=== PATIENT | male | born 1940 | race Two or more races ===

== ENCOUNTER 2020-12-05 17:46 | Inpatient (IN) | payer OTHER, MEDICAID ==
[~2020-12-05] VITALS: Ht 165.1 cm; Wt 80.3 kg
[2020-12-05] MEDS ORDERED: SODIUM CHLORIDE 0.9% 1,000 ML IV ONE (18:15)
[2020-12-05] MEDS ORDERED: LEVETIRACETAM 1000MG PREMIX 100 ML IV ONE (18:15)
[2020-12-05] MEDS ORDERED: LORAZEPAM 2MG/ML CPJ IV ONE ×2 (18:15→18:30)
[2020-12-05] MEDS ORDERED: ETOMIDATE 2MG/ML 10ML VIAL IV ONE (18:30)
[2020-12-05] MEDS ORDERED: ROCURONIUM BROMIDE 10MG/ML VIAL 5ML IV ONE (18:30)
[2020-12-05] MEDS ORDERED: PROPOFOL 10MG/ML 100ML 100 ML IV ONE ×2 (18:30→19:30)
[2020-12-05 18:56] LABS: BASOPHILS % 0.5 % (0.0-2.0); HEMATOCRIT. 42.7 % (42.0-52.0); HEMOGLOBIN. 14.4 g/dL (14.0-18.0); MEAN CORPUSCULAR HEMOGLOBIN 32.1 pg (28.0-32.0); MEAN CORPUSCULAR VOLUME 95.4 fL (80.0-94.0); MEAN PLATELET VOLUME 7.5 fl (7.4-10.4); MONOCYTES % 4.8 % (2.0-8.0); NEUTROPHILS % 45.7 % (40.0-76.0); PLATELET 214 x1000/uL (130-400); RED BLOOD CELL COUNT 4.48 mill/uL (4.7-6.1); RED CELL DISTRIBUTION WIDTH 14.2 % (11.6-14.6)
[2020-12-05 19:02] LABS: CHLORIDE 100 mEq/L (98-107)
[2020-12-05 19:07] LABS: ETHANOL BLOOD < 10 mg/dL
[2020-12-05] MEDS ORDERED: PHENYTOIN SODIUM 1,000 MG in SODIUM CHLORIDE 0.9% 100 ML IV ONE (19:15)
[2020-12-05 19:36] LABS: CLARITY URINE CLEAR (CLEAR); COLOR URINE YELLOW (YELLOW); KETONES URINE TRACE (NEGATIVE); LEUKOCYTE ESTERASE URINE NEGATIVE (NEGATIVE); NITRITE URINE NEGATIVE (NEGATIVE); OCCULT BLOOD URINE 1+ (NEGATIVE); PH URINE 5.5 (4.5-8.0); PROTEIN URINE 3+ (NEGATIVE); SPECIFIC GRAVITY URINE 1.015 (1.005-1.030); UROBILINOGEN URINE 0.2 E.U./dL (0.2-1.0)
[2020-12-05 19:47] LABS: *AMPHETAMINES SCREEN URINE NEGATIVE (NEGATIVE); *BARBITURATES SCREEN URINE NEGATIVE (NEGATIVE); *BENZODIAZEPINES SCREEN URINE NEGATIVE (NEGATIVE); *COCAINE SCREEN URINE NEGATIVE (NEGATIVE); CANNABINOID URINE SCREEN NEGATIVE (NEGATIVE); PHENCYCLIDINE URINE SCREEN NEGATIVE (NEGATIVE)
[2020-12-05 19:48] LABS: METHADONE URINE SCREEN NEGATIVE (NEGATIVE); OPIATES URINE SCREEN NEGATIVE (NEGATIVE)
[2020-12-05] MEDS ORDERED: ACETAMINOPHEN 650MG/20.3ML UDC GT PRN ×2 (20:30)
[2020-12-05] MEDS ORDERED: DEXTROSE 50% WATER 50ML SYRINGE IV PRN (20:30)
[2020-12-05] MEDS ORDERED: ONDANSETRON HCL 4MG/2ML INJ IV PRN (20:30)
[2020-12-05] MEDS ORDERED: LORAZEPAM 2MG/ML CPJ IV PRN (20:30)
[2020-12-05] MEDS ORDERED: DIPHENHYDRAMINE 50MG/ML VIAL IV PRN (20:30)
[2020-12-05] MEDS ORDERED: LEVETIRACETAM 500 MG in SODIUM CHLORIDE 0.9% 100 ML IV SCH (20:30)
[2020-12-05] MEDS ORDERED: BLOOD SUGAR DIAGNOSTIC STRIP TEST SCH (21:00)
[2020-12-05] MEDS ORDERED: INSULIN LISPRO 100 UNITS/ML SUBCUT SCH (21:00)
[2020-12-05] MEDS: SODIUM CHLORIDE 0.9% 1,000 ML IV SCH (21:15)
[2020-12-05] MEDS ORDERED: PHENYTOIN SODIUM 300 MG in SODIUM CHLORIDE 0.9% 50 ML IV SCH (22:00)
[2020-12-05 23:45] VITALS: BP 152/72
[2020-12-06] VITALS (62 sets, daily range): BP systolic 78–170; BP diastolic 48–99
[2020-12-06 00:15] LABS: BG CARBOXYHEMOGLOBIN 0.1 % (0.5-1.5); BG DEOXYHEMOGLOBIN 0.8 % (0.0-5.0); BG FRACTION INSPIRED OXYGEN 100; BG HCO3 ACT 19.6 mmol/L (22.0-26.0); BG METHEMOGLOBIN 0.3 % (0.0-1.5); BG OXYGEN SATURATION 99.2 % (92.0-98.5); BG OXYHEMOGLOBIN 98.8 % (94.0-97.0); BG PCO2 31.8 mmHg (35.0-45.0); BG PH 7.408 (7.350-7.450); BG PO2 346.7 mmHg (75.0-100.0); BG SAMPLE SITE ALINE; BG TOTAL HEMOGLOBIN 13.9 g/dL (12.0-18.0); BG VENT MODE VENT - AC
[2020-12-06] MEDS ORDERED: FENTANYL CITRATE/PF 2,500 MCG in SODIUM CHLORIDE 0.9% 200 ML IV PRN (01:45)
[2020-12-06] MEDS ORDERED: FENTANYL CITRATE 2,500 MCG in SODIUM CHLORIDE 0.9% 200 ML IV PRN (02:00)
[2020-12-06] MEDS: PROPOFOL 10MG/ML 100ML 100 ML IV PRN ×2 (03:02→07:03)
[2020-12-06] MEDS ORDERED: METF-416 MT (03:31)
[2020-12-06] MEDS ORDERED: BENA40TA9 PO (03:31)
[2020-12-06] MEDS ORDERED: MIRT-89 PO (03:31)
[2020-12-06] MEDS ORDERED: LEVE500T98 PO (03:31)
[2020-12-06] MEDS ORDERED: DONE23TA3 PO (03:31)
[2020-12-06] MEDS ORDERED: MELO-106 PO (03:31)
[2020-12-06] MEDS ORDERED: ASPI-1497 PO (03:31)
[2020-12-06] MEDS ORDERED: PHEN50TA2 PO (03:31)
[2020-12-06] MEDS: BLOOD SUGAR DIAGNOSTIC STRIP TEST SCH ×3 (05:51→17:31)
[2020-12-06] MEDS: SODIUM CHLORIDE 0.9% 1,000 ML IV SCH ×2 (06:02→16:03)
[2020-12-06] MEDS: INSULIN LISPRO 100 UNITS/ML SUBCUT SCH ×3 (06:03→17:30)
[2020-12-06 07:00] LABS: BASOPHILS % 0.5 % (0.0-2.0); EOSINOPHILS % 0.2 % (0.0-5.0); HEMATOCRIT. 34.8 % (42.0-52.0); HEMOGLOBIN. 12.3 g/dL (14.0-18.0); MEAN CORPUSCULAR HEMOGLOBIN 31.8 pg (28.0-32.0); MEAN CORPUSCULAR VOLUME 89.9 fL (80.0-94.0); MEAN PLATELET VOLUME 7.5 fl (7.4-10.4); MONOCYTES % 6.8 % (2.0-8.0); NEUTROPHILS % 71.5 % (40.0-76.0); PLATELET 167 x1000/uL (130-400); RED BLOOD CELL COUNT 3.87 mill/uL (4.7-6.1)
[2020-12-06] MEDS ORDERED: PHENYLEPHRINE 50 MG in DEXT 5% WATER 245 ML IV PRN (07:00)
[2020-12-06 07:13] LABS: CHLORIDE 106 mEq/L (98-107)
[2020-12-06 07:26] LABS: PHOSPHORUS 2.9 mg/dL (2.5-4.9)
[2020-12-06] MEDS ORDERED: LIDOCAINE HCL 1% 30ML VIAL (10MG/ML) ONE (08:37)
[2020-12-06] MEDS ORDERED: PHENYTOIN SODIUM 100MG/2ML VIAL IV ONE (08:46)
[2020-12-06] MEDS: PANTOPRAZOLE SODIUM 40 MG/VIAL IV SCH (08:52)
[2020-12-06] MEDS: PHENYTOIN SODIUM 300 MG in SODIUM CHLORIDE 0.9% 50 ML IV SCH ×2 (08:52→09:16)
[2020-12-06] MEDS ORDERED: DOPAMINE 400MG/250ML PREMIX 250 ML IV PRN (09:00)
[2020-12-06 09:02] LABS: BG BASE EXCESS -4.2 mmol/L (-2.0-2.0); BG CARBOXYHEMOGLOBIN 0.2 % (0.5-1.5); BG DEOXYHEMOGLOBIN 2.5 % (0.0-5.0); BG FRACTION INSPIRED OXYGEN 40; BG HCO3 ACT 20.3 mmol/L (22.0-26.0); BG METHEMOGLOBIN 0.3 % (0.0-1.5); BG OXYGEN SATURATION 97.5 % (92.0-98.5); BG PCO2 35.3 mmHg (35.0-45.0); BG PH 7.377 (7.350-7.450); BG PO2 104.9 mmHg (75.0-100.0); BG SAMPLE SITE LEFT RADIAL; BG TOTAL HEMOGLOBIN 12.8 g/dL (12.0-18.0); BG VENT MODE VENT - AC
[2020-12-06] MEDS: LEVETIRACETAM 500MG PREMIX 100 ML IV SCH ×2 (09:17→21:16)
[2020-12-06] MEDS ORDERED: IPRATROPIUM/ALBUTEROL 0.5-3(2.5)MG/3ML NEB HHN PRN (10:45)
[2020-12-06] MEDS ORDERED: INFLUENZA VACCINE 05/PF 0.5 ML SYRINGE IM ONE (12:00)
[2020-12-06] MEDS ORDERED: PNEUMOCOCCAL 23-VAL P-SAC VAC 0.5 ML IM ONE (12:00)
[2020-12-06] MEDS: GUAIFENESIN 200MG/10ML SUGAR FREE UDC PO SCH ×2 (14:35→17:31)
[2020-12-06] MEDS ORDERED: MIDAZOLAM HCL 100 MG in SODIUM CHLORIDE 0.9% 80 ML IV PRN (15:15)
[2020-12-06] MEDS: IPRATROPIUM/ALBUTEROL 0.5-3(2.5)MG/3ML NEB HHN SCH ×2 (16:33→20:07)
[2020-12-06] MEDS ORDERED: THIAMINE HCL 100 MG in SODIUM CHLORIDE 0.9% 49 ML IV NR (17:00)
[2020-12-06 18:02] LABS: BG BASE EXCESS -4.1 mmol/L (-2.0-2.0); BG CARBOXYHEMOGLOBIN 0.3 % (0.5-1.5); BG DEOXYHEMOGLOBIN 2.1 % (0.0-5.0); BG FRACTION INSPIRED OXYGEN 40; BG HCO3 ACT 18.9 mmol/L (22.0-26.0); BG METHEMOGLOBIN 0.2 % (0.0-1.5); BG OXYGEN SATURATION 97.9 % (92.0-98.5); BG OXYHEMOGLOBIN 97.4 % (94.0-97.0); BG PCO2 28.7 mmHg (35.0-45.0); BG PH 7.436 (7.350-7.450); BG PO2 106.9 mmHg (75.0-100.0); BG SAMPLE SITE LEFT RADIAL; BG TOTAL HEMOGLOBIN 13.1 g/dL (12.0-18.0); BG VENT MODE VENT - CPAP
[2020-12-06 20:58] LABS: BG BASE EXCESS -4.3 mmol/L (-2.0-2.0); BG CARBOXYHEMOGLOBIN 0.4 % (0.5-1.5); BG DEOXYHEMOGLOBIN 2.5 % (0.0-5.0); BG FRACTION INSPIRED OXYGEN 40; BG HCO3 ACT 19.5 mmol/L (22.0-26.0); BG METHEMOGLOBIN 0.3 % (0.0-1.5); BG OXYGEN SATURATION 97.5 % (92.0-98.5); BG OXYHEMOGLOBIN 96.8 % (94.0-97.0); BG PCO2 32.1 mmHg (35.0-45.0); BG PH 7.401 (7.350-7.450); BG PO2 98.6 mmHg (75.0-100.0); BG SAMPLE SITE LEFT RADIAL; BG TOTAL HEMOGLOBIN 13.2 g/dL (12.0-18.0); BG VENT MODE COOL AEROSOL
[2020-12-06] MEDS: PIPERACILLIN/TAZOBACTAM 3.375 G in DEXTROSE 5% WATER 50 ML IV SCH (21:16)
[2020-12-07] VITALS (30 sets, daily range): BP systolic 122–169; BP diastolic 52–103
[2020-12-07] MEDS: IPRATROPIUM/ALBUTEROL 0.5-3(2.5)MG/3ML NEB HHN SCH ×4 (00:17→20:58)
[2020-12-07] MEDS: BLOOD SUGAR DIAGNOSTIC STRIP TEST SCH ×5 (00:17→23:45)
[2020-12-07] MEDS: INSULIN LISPRO 100 UNITS/ML SUBCUT SCH ×5 (01:13→23:54)
[2020-12-07] MEDS: SODIUM CHLORIDE 0.9% 1,000 ML IV SCH (02:20)
[2020-12-07] MEDS: PIPERACILLIN/TAZOBACTAM 3.375 G in DEXTROSE 5% WATER 50 ML IV SCH ×3 (05:12→21:12)
[2020-12-07] MEDS: GUAIFENESIN 200MG/10ML SUGAR FREE UDC PO SCH ×5 (05:39→23:53)
[2020-12-07 05:40] LABS: BASOPHILS % 0.6 % (0.0-2.0); EOSINOPHILS % 0.4 % (0.0-5.0); HEMATOCRIT. 38.2 % (42.0-52.0); HEMOGLOBIN. 13.3 g/dL (14.0-18.0); LYMPHOCYTES % 22.3 % (20.0-50.0); MEAN CORPUSCULAR VOLUME 92.2 fL (80.0-94.0); MONOCYTES % 8.7 % (2.0-8.0); PLATELET 161 x1000/uL (130-400); RED BLOOD CELL COUNT 4.14 mill/uL (4.7-6.1)
[2020-12-07 05:49] LABS: CHLORIDE 107 mEq/L (98-107)
[2020-12-07] MEDS: LEVETIRACETAM 500MG PREMIX 100 ML IV SCH ×2 (08:02→20:19)
[2020-12-07] MEDS: ENOXAPARIN 40MG/0.4ML SYR SUBCUT SCH (08:02)
[2020-12-07] MEDS: PANTOPRAZOLE SODIUM 40 MG/VIAL IV SCH (08:02)
[2020-12-07 08:57] LABS: BG BASE EXCESS -2.3 mmol/L (-2.0-2.0); BG CARBOXYHEMOGLOBIN 0.4 % (0.5-1.5); BG DEOXYHEMOGLOBIN 3.6 % (0.0-5.0); BG FRACTION INSPIRED OXYGEN 21; BG HCO3 ACT 21.5 mmol/L (22.0-26.0); BG METHEMOGLOBIN 0.2 % (0.0-1.5); BG OXYGEN SATURATION 96.4 % (92.0-98.5); BG OXYHEMOGLOBIN 95.8 % (94.0-97.0); BG PCO2 34.3 mmHg (35.0-45.0); BG PH 7.416 (7.350-7.450); BG SAMPLE SITE LEFT RADIAL; BG TOTAL HEMOGLOBIN 13.2 g/dL (12.0-18.0); BG VENT MODE ROOM AIR
[2020-12-07] MEDS: HYDRALAZINE 20MG/ML VIAL IV PRN (10:08)
[2020-12-07] MEDS: AMLODIPINE 5MG TABLET PO SCH (11:33)
[2020-12-07] MEDS: PHENYTOIN SODIUM 100MG/2ML VIAL IV SCH ×2 (15:08→21:12)
[2020-12-07] MEDS: METOCLOPRAMIDE HCL 10MG/2ML VIAL IV SCH ×2 (17:51→23:54)
[2020-12-07] MEDS: DOCUSATE SODIUM 100MG CAPSULE PO SCH (17:51)
[2020-12-08] VITALS (34 sets, daily range): BP systolic 109–164; BP diastolic 55–92
[2020-12-08] MEDS: IPRATROPIUM/ALBUTEROL 0.5-3(2.5)MG/3ML NEB HHN SCH ×3 (01:21→14:40)
[2020-12-08] MEDS: PIPERACILLIN/TAZOBACTAM 3.375 G in DEXTROSE 5% WATER 50 ML IV SCH ×2 (05:22→13:13)
[2020-12-08] MEDS: GUAIFENESIN 200MG/10ML SUGAR FREE UDC PO SCH ×2 (05:22→13:12)
[2020-12-08] MEDS: BLOOD SUGAR DIAGNOSTIC STRIP TEST SCH ×2 (05:23→12:00)
[2020-12-08] MEDS: PHENYTOIN SODIUM 100MG/2ML VIAL IV SCH ×2 (05:23→13:13)
[2020-12-08] MEDS: METOCLOPRAMIDE HCL 10MG/2ML VIAL IV SCH ×2 (05:23→13:12)
[2020-12-08] MEDS: INSULIN LISPRO 100 UNITS/ML SUBCUT SCH ×2 (05:24→13:13)
[2020-12-08 05:38] LABS: BASOPHILS % 0.5 % (0.0-2.0); EOSINOPHILS % 1.7 % (0.0-5.0); HEMATOCRIT. 33.2 % (42.0-52.0); HEMOGLOBIN. 11.7 g/dL (14.0-18.0); LYMPHOCYTES % 25.2 % (20.0-50.0); MEAN CORPUSCULAR HEMOGLOBIN 32.1 pg (28.0-32.0); MEAN CORPUSCULAR VOLUME 91.4 fL (80.0-94.0); MEAN PLATELET VOLUME 7.5 fl (7.4-10.4); MONOCYTES % 8.6 % (2.0-8.0); PLATELET 153 x1000/uL (130-400); RED BLOOD CELL COUNT 3.64 mill/uL (4.7-6.1); RED CELL DISTRIBUTION WIDTH 14.2 % (11.6-14.6)
[2020-12-08 05:54] LABS: CHLORIDE 106 mEq/L (98-107)
[2020-12-08] MEDS: ENOXAPARIN 40MG/0.4ML SYR SUBCUT SCH (09:12)
[2020-12-08] MEDS: DOCUSATE SODIUM 100MG CAPSULE PO SCH ×2 (09:12→16:45)
[2020-12-08] MEDS: PANTOPRAZOLE SODIUM 40 MG/VIAL IV SCH (09:12)
[2020-12-08] MEDS: AMLODIPINE 5MG TABLET PO SCH (09:12)
[2020-12-08] MEDS: LEVETIRACETAM 500MG PREMIX 100 ML IV SCH (09:14)
[2020-12-08] MEDS ORDERED: POTASSIUM CHLORIDE 20MEQ TABLET SR PO NR (09:30)
[2020-12-08] MEDS ORDERED: LEVE750T4 MT (11:33)
[2020-12-08] MEDS ORDERED: AMOX1TAB15 PO (11:33)
[2020-12-08] MEDS ORDERED: ALBU90AE INH (11:33)
[2020-12-08] MEDS ORDERED: PHEN100C4 PO (11:33)
[2020-12-08] MEDS ORDERED: LEVETIRACETAM 500MG TABLET PO NR (11:45)
[2020-12-08] MEDS ORDERED: LEVETIRACETAM 250MG TABLET PO NR (13:00)
[2020-12-08] MEDS: HYDRALAZINE 20MG/ML VIAL IV PRN (13:43)
[2020-12-08] MEDS ORDERED: LEVETIRACETAM 500MG TABLET PO SCH (21:00)
== END 2020-12-08 17:20 | disposition home health service (06) | DRG 208 ==
LOC: EDBD 17:46 → ER 17:46 → CVICU 20:13 → EDBEDREQ 20:23 → EDBEDREQTM 20:23 → ENRESERV 22:02
PROVIDERS: ADMIT Internal Medicine; ATTEND Internal Medicine
PROC: 5A1945Z Respiratory Ventilation, 24-96 Consecutive Hours (ICD-10-PCS; principal; 2020-12-05)
PROC: 0BH17EZ Insertion of Endotracheal Airway into Trachea, Via Natural or Artificial Opening (ICD-10-PCS; 2020-12-05)
PROC: 02HV33Z Insertion of Infusion Device into Superior Vena Cava, Percutaneous Approach (ICD-10-PCS; 2020-12-06)
PROC: B548ZZA Ultrasonography of Superior Vena Cava, Guidance (ICD-10-PCS; 2020-12-06)
PROC: 4A10X4Z Monitoring of Central Nervous Electrical Activity, External Approach (ICD-10-PCS; 2020-12-08)
DX: J96.01 Acute respiratory failure with hypoxia (principal); J69.0 Pneumonitis due to inhalation of food and vomit; E87.1 Hypo-osmolality and hyponatremia; E44.1 Mild protein-calorie malnutrition; J98.11 Atelectasis; G40.901 Epilepsy, unspecified, not intractable, with status epilepticus; G30.9 Alzheimer's disease, unspecified; F02.80 Dementia in other diseases classified elsewhere, unspecified severity, without behavioral disturbance, psychotic disturbance, mood disturbance, and anxiety; E11.65 Type 2 diabetes mellitus with hyperglycemia; D72.829 Elevated white blood cell count, unspecified; D64.9 Anemia, unspecified; I10 Essential (primary) hypertension; Z20.822 Contact with and (suspected) exposure to COVID-19; I95.9 Hypotension, unspecified; M19.90 Unspecified osteoarthritis, unspecified site; Z78.1 Physical restraint status; Z79.899 Other long term (current) drug therapy; Z79.84 Long term (current) use of oral hypoglycemic drugs; Z68.29 Body mass index [BMI] 29.0-29.9, adult; R00.1 Bradycardia, unspecified
CPT/HCPCS: 31500; 36415; 36600; 70551; 71045; 74018; 76937; 80048; 80053; 80185; 80305; 80320; 81003; 82375; 82805; 82962; 83036; 83735; 84100; 84478; 84484; 85025; 87070; 87426; 90686; 90732; 93005; 93306; 94002; 94003; 94640; 95816; 97162; 99291; C1725; C9113; J0360; J1165; J1650; J1815; J1953; J2060; J2250; J2543; J2704; J2765; J3411; J3490; J7030; J7040; J7050; J7060; G0480